=== PATIENT | female | born 1955 ===

== ENCOUNTER 2024-08-25 06:21 | Day surgery (SDC) | payer MEDICARE, OTHER, SELFPAY ==
[2024-08-10 08:41] VITALS: BMI 33.7
[2024-08-10 09:37] LABS: Hematocrit 38.5 % (37.0-47.0); Hemoglobin 13.2 g/dL (12.0-16.0); Mean Corp Hgb Conc. 34.3 g/dL (33.0-37.0); Mean Corpuscular Hgb 30.8 pg (27.0-31.0); Platelet Count 198 10^3/uL (130-400); Red Blood Cell Count 4.28 10^6/uL (4.20-5.40); Red Cell Dist. Width 12.6 % (11.5-14.5); White Blood Cell Count 5.5 10^3/uL (4.8-10.8)
[2024-08-10 09:41] LABS: ALT (SGPT) 17 U/L (0-35); AST (SGOT) 23 U/L (14-36); Alkaline Phosphatase 84 U/L (38-126); Blood Urea Nitrogen 12 mg/dl (7-17); Calcium 9.2 mg/dl (8.4-10.2); Carbon Dioxide 29 mmol/L (22-30); Chloride 104 mmol/L (98-107); Estimated Creatinine Clearance 110 ml/min; Glucose 87 mg/dl (70-99); Potassium 4.1 mmol/L (3.5-5.1); Sodium 143 mmol/L (135-145); Total Bilirubin 0.8 mg/dl (0.2-1.3); Total Protein 6.4 g/dl (6.3-8.2); eGFR > 60.00
[2024-08-10 10:32] LABS: Glycohemoglobin (HgbA1c) 5.1 % (4.0-5.6)
--- NOTE | 2024-08-12 11:30 | VNURNOTE ---
[facility] liaison called patient to discuss upcoming knee surgery and SDS joint protocol, DC plans. No answer, left message.
--- NOTE | 2024-08-16 09:30 | VNURNOTE ---
[facility] liaison rec'ed update from Ortho ARLETTE Carranza. Per pre-op Ortho visit on 08/13, plan is for patient to stay overnight at after surgery. PA advised no home care necessary.
[2024-08-20 10:42] VITALS: BMI 33.7
--- NOTE | 2024-08-24 12:45 | VNURNOTE ---
SAME DAY TOTAL JOINT PROGRAM VISITING NURSE AND VISITING PHYSICAL THERAPY CONSULTATION REQUEST:
PATIENT: KWABENA ZIMMERMAN
ADDRESS: [address] [place] [address] [place] [id number]
INSURANCE: MEDICARE [id number]
SECONDARY INS: [id number]
PATIENT : 51
PATIENT CONTACT #: HOME / CELL [phone]
FAMILY CONTACT: STEFANIE - DAUGHTER [phone]
SURGEON: DR SOLA SALINAS
SURGERY PLANNED: LEFT TOTAL KNEE ARTHROPLASTY
DATE OF SURGERY: 08/25/24
TOTAL KNEE PROTOCOL: VN AND VISITING PT, ROM, WBAT, CHANGE DRESSING ONLY IF NEEDED
TOTAL HIP PROTOCOL: VN AND VISITING PT, POSTERIOR APPROACH HIP PRECAUTIONS, CHANGE DRESSING ONLY IF NEEDED
CALL [phone] AFTER 1300 DAY BEFORE SURGERY TO FIND OUT SURGERY TIME
Call placed to Ridge Greene at [facility]. He stated since short notice, they may be able to see her either same day or next day. Emailed above to him and Raymundo Rodarte at [email or web address]
[2024-08-25] VITALS (21 sets, daily range): BP systolic 91–146; BP diastolic 49–82; BMI 33.7
[2024-08-25] MEDS: CELEBREX 200 MG PO (07:31)
[2024-08-25] MEDS: TYLENOL 650 MG PO (07:31)
--- NOTE | 2024-08-25 07:39 | PTCARENOTE ---
No IVF started by [facility] due to IV shortage.
[2024-08-25] MEDS: ZOFRAN 4 MG IV (10:55)
[2024-08-25] MEDS: NORMOSOL-R/PLASMALYTE-A 1000 IV (11:00)
[2024-08-25] MEDS: ANCEF 5 IV ×2 (12:40→21:18)
[2024-08-25] MEDS: COMPAZINE 10 MG IV (12:46)
[2024-08-25] MEDS: NSS (PRESERVATIVE FREE) 10 ML IV (14:30)
[2024-08-25] MEDS: PROTONIX IV 40 MG IV (14:30)
[2024-08-25] MEDS: TYLENOL 1000 MG PO (15:02)
--- NOTE | 2024-08-25 15:16 | W.PN.UPDATE ---
Update Note
Progress Note Update
The patient was initially intended to be a SDS patient; however, due to PONV and drowsiness impairing her safety, we will keep overnight for further monitoring.
L knee OA s/p L TKA w/ Dr Perez 08/25/2024
DVT prophylaxis - Pradaxa resumption POD 1 if remaining hemodynamically stable, b/l venous foot pumps
PONV - will do PO Compazine TID w/ IV Zofran prn
- Daily Protonix
- Adjust pain meds if nausea continues
- Monitor
HTN - + parameters - monitor BP
PAF s/p ablation - monitor on tele
- Continue BB
- Pradaxa as stated above
Hypercholesterolemia
Probable venous insufficiency
Reported cognitive deficits
[2024-08-25] MEDS: TORADOL 15 MG IV (17:05)
--- NOTE | 2024-08-25 18:45 | PTCARENOTE ---
pt admitted to 2S room 2110 from [facility]. pt transferred from stretcher to bed with assist of 2. telemetry placed and reading SR 70's. pt oriented to room, call funes, bed controls and plan of care with verbalized understanding. admission database
completed as documented. denies nausea at admission. will observe.
[2024-08-25] MEDS: COLACE 100 MG PO (20:31)
[2024-08-25] MEDS: COZAAR 50 MG PO (20:31)
[2024-08-25] MEDS: SENOKOT 17.2 MG PO (20:31)
[2024-08-25] MEDS: DECADRON 4 MG PO (20:31)
[2024-08-25] MEDS: TOPROL XL 50 MG PO (20:32)
[2024-08-25] MEDS: BACTROBAN 2% OINTMENT 1 APPLIC NASAL (20:32)
[2024-08-25] MEDS: NSS 1000 IV (20:52)
[2024-08-25] MEDS: COMPAZINE 5 MG PO (21:18)
[2024-08-25] MEDS: LIDOCAINE 4% PATCH 2 PATCH TOPICAL (21:19)
[2024-08-25] MEDS: ROXICODONE 10 MG PO (21:30)
[2024-08-26] MEDS: DILAUDID 0.5 MG IV ×2 (00:06→04:29)
[2024-08-26] MEDS: TYLENOL 650 MG PO ×3 (00:06→08:42)
[2024-08-26 02:57] VITALS: BP 120/63
[2024-08-26] MEDS: ANCEF 5 IV (03:07)
[2024-08-26 07:05] VITALS: BP 124/55
[2024-08-26] MEDS: BACTROBAN 2% OINTMENT 1 APPLIC NASAL (08:39)
[2024-08-26] MEDS: SENOKOT 17.2 MG PO (08:40)
[2024-08-26] MEDS: PROTONIX 40 MG PO (08:40)
[2024-08-26] MEDS: COLACE 100 MG PO (08:40)
[2024-08-26] MEDS: COMPAZINE 5 MG PO (08:42)
[2024-08-26] MEDS: DECADRON 4 MG PO (08:42)
[2024-08-26] MEDS: TOPROL XL 50 MG PO (08:42)
[2024-08-26] MEDS: COZAAR PO (08:42)
[2024-08-26] MEDS: PRADAXA 150 MG PO (08:43)
[2024-08-26] MEDS: ROXICODONE 10 MG PO (08:54)
[2024-08-26 09:46] VITALS: BP 139/61; PULSE 62; O2SAT 99
--- NOTE | 2024-08-26 10:16 | W.PN.ORTHO ---
Today's Communication / Plan
-
D/c later today if remaining clinically stable.
Assessment
.
Distal Motor Intact: Yes
Dressing:
Scant areas of old incisional bleeding.
Assessment:
The patient was initially intended to be a SDS patient; however, due to PONV and drowsiness impairing her safety, she was kept overnight for further monitoring.
L knee OA s/p L TKA w/ Dr Perez 08/25/2024
DVT prophylaxis - Pradaxa resumption POD 1 since hemodynamically stable, b/l venous foot pumps
Post-op pain - pain 'radiates' across L knee - will add tapered Lyrica for neuropathic pain
PONV - likely multifactorial 2* anesthesia and IV Dilaudid - reportedly has tolerated Oxycodone well in past
- Prefer Compazine over Zofran -> will Rx
- Daily Protonix -> will Rx
- Pt prefers to stay on Oxycodone for time being. Will call [facility] for pain med adjustments if felt warranted
- Encouraged pain meds with food, spacing out meds overall
- N/V not bothersome to patient. Able to progress w/ therapy and do well despite N/V. States shes OK going home
HTN - + parameters - BPs stable
PAF s/p ablation - maintaining NSR on tele
- Continue BB
- Pradaxa as stated above
Hypercholesterolemia
Probable venous insufficiency
Reported cognitive deficits
Plan
.
Surgery / Date: L TKA w/ Dr Perez 08/25/2024
DVT Prophylaxis: Other (Pradaxa )
Activity:
Out of bed.
PT/OT
Discharge Plan: Home w/ Outpatient PT
Subjective
.
.:
Patient examined resting in her chair.
L knee pain controlled at rest but exacerbated w/ ambulation; will adjust meds.
PONV - likely 2* IV Dilaudid and anesthesia.
Eager for potential d/c today.
Vital Signs and Labs
.
Vital Signs and Labs:
Lab Results
08/10/24 06:41
08/10/24 06:41
Temp Pulse Resp BP Pulse Ox
98.4 F 67 14 124/55 94
08/26/24 07:05 08/26/24 07:05 08/26/24 07:05 08/26/24 07:05 08/26/24 07:05
Non-invasive Hgb result: 12.3
Physical Exam
-
HEENT: No pallor, cyanosis, or jaundice. Throat clear.
NECK: Supple. No JVD.
RESPIRATORY: Lungs clear to auscultation.
CVS: S1, S2 normal. RRR.�
ABDOMEN: Soft, non-tender. No distension. Obese.
EXTREMITIES: Expected post-surgical L knee edema. Strength equal, no calf pain with palpation/dorsiflexion. Calves soft.
GEAR TESTER: AOx3. No focal deficits. 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
--- NOTE | 2024-08-26 10:34 | W.DS.TRANS ---
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
-
Discharge Instructions:
Sleep Apnea Risk Low
Discharge Diagnosis/Procedures L knee OA s/p L TKA w/ Dr. Perez 08/25/2024
Diet Other diet
Additional Diets Diabetic carb controlled x1 week for wound
healing/infection prevention
Activity As tolerated,With Walker
Driving Restrictions Not until seen by your Dr
Bathing Restrictions OK to Shower
Other Services PT
Wound Care Dressing to be removed 1 week post-surgery.
Instructions:
Stand-Alone Forms: SDS Total Hip and Knee D/C
Changes to Home Medications: Yes
Discharge Medications:
DC Medications w/original date entered in [facility]
dabigatran etexilate 150 mg capsule (Pradaxa) 150 mg PO BID 08/19/24
metoprolol succinate 50 mg tablet,extended release 24 hr 50 mg PO DAILY 08/19/24
acetaminophen 500 mg tablet (Tylenol Extra Strength) 1,000 mg (2 x 500 mg) PO Q6H #60 tabs 08/25/24
dexamethasone 4 mg tablet 4 mg PO Q12H Anti-inflammatory #7 tabs 08/25/24
docusate sodium 100 mg capsule (Colace) 100 mg PO BID #30 caps 08/25/24
oxycodone 5 mg tablet 5 - 10 mg (1 - 2 x 5 mg) PO Q6H PRN moderate-severe pain #30 tabs 08/25/24
sennosides 8.6 mg tablet (senna) 17.2 mg (2 x 8.6 mg) PO BID #30 tabs 08/25/24
amlodipine 5 mg tablet 5 mg PO DAILY #1 tab 08/26/24
losartan 50 mg tablet 50 mg PO BID #1 tab 08/26/24
pantoprazole 40 mg tablet,delayed release 40 mg PO DAILY #30 tabs 08/26/24
pregabalin 75 mg capsule 75 mg PO BID neuropathic pain #15 caps 08/26/24
prochlorperazine maleate 5 mg tablet 5 mg PO Q8HPRN PRN nausea and vomiting #30 tabs 08/26/24
Home Medication Changes
acetaminophen 500 mg tablet (Tylenol Extra Strength) 1,000 mg (2 x 500 mg) PO Q6H #60 tabs 08/25/24
dexamethasone 4 mg tablet 4 mg PO Q12H Anti-inflammatory #7 tabs 08/25/24
docusate sodium 100 mg capsule (Colace) 100 mg PO BID #30 caps 08/25/24
oxycodone 5 mg tablet 5 - 10 mg (1 - 2 x 5 mg) PO Q6H PRN moderate-severe pain #30 tabs 08/25/24
sennosides 8.6 mg tablet (senna) 17.2 mg (2 x 8.6 mg) PO BID #30 tabs 08/25/24
pantoprazole 40 mg tablet,delayed release 40 mg PO DAILY #30 tabs 08/26/24
pregabalin 75 mg capsule 75 mg PO BID neuropathic pain #15 caps 08/26/24
prochlorperazine maleate 5 mg tablet 5 mg PO Q8HPRN PRN nausea and vomiting #30 tabs 08/26/24
Pending Results: No
--- NOTE | 2024-08-26 10:36 | CM ---
Addendum entered by Jia Draper 08/26/24 10:45:
PCP: Drew Silva
Pharmacy: [facility]
Original Note:
Patient seen at bedside.
IA completed. Case management consult completed.
Patient lives with her daughter in 2 story home. Her living space on 1 floor.
PLOF: Independent
DME: walker, cane
Patient has outpatient scheduled at [facility] on Friday. She states will call to get an earlier appt.
PLAN: Home, outpatient therapy
daughter to transport
[2024-08-26 10:46] VITALS: BP 150/66; PULSE 67; O2SAT 99
[2024-08-26] MEDS: LYRICA 75 MG PO (11:05)
[2024-08-26 11:33] VITALS: BP 138/64
[2024-08-26] MEDS: TYLENOL PO (12:26)
== END 2024-08-26 12:37 | disposition home or self-care (01) ==
LOC: SDS 06:21
PROVIDERS: ATTENDING PHYSICIAN Orthopaedic Surgery; FAMILY PHYSICIAN Family Medicine; REFERRING PHYSICIAN Internal Medicine Interventional Cardiology
DX: M17.12 Unilateral primary osteoarthritis, left knee (principal)
CPT/HCPCS: 27447; 36415; 73560; 80053; 83036; 85027; 87070; 97110; 97116; 97162; 97166; 97535; C1713; C1776